=== PATIENT | male | born 1990 | race African-American/Black ===

== ENCOUNTER 2022-04-05 12:14 | Emergency (ER) | payer SELFPAY ==
[2022-04-05 12:53] LABS: Bilirubin Negative (Negative); Blood, Urine Negative (Negative); Clarity Clear (Clear); Glucose, Urine (Dipstick) Normal (Negative); Ketone, Urine Negative (Negative); Leukocyte Negative Leu/uL (Negative); Nitrite Negative (Negative); Protein, Urine (Dipstick) Negative (Neg-Trace); Specific Gravity, Urine 1.026 (1.002-1.036); Urobilinogen Normal mg/dL (Less than 2); pH, Urine 6.5 (5.0-9.0)
[2022-04-05] MEDS ORDERED: cefTRIAXone\\ROCEPHIN 500 MG VIAL ONE (13:02)
[2022-04-05] MEDS ORDERED: Lidocaine 1% MPF 2 ML VIAL ONE (13:03)
[2022-04-05 21:21] LABS: Chlam.trachomatis by PCR,Urine DETECTED (NotDetected)
== END 2022-04-05 13:20 | disposition home or self-care (01) ==
LOC: ERS 12:14
DX: R30.0 Dysuria (principal); Z20.2 Contact with and (suspected) exposure to infections with a predominantly sexual mode of transmission
CPT/HCPCS: 81003; 87491; 87591; 96372; 99283; J0696